=== PATIENT | female | born 1980 | race Caucasian/White ===

== ENCOUNTER 2017-03-06 18:09 | Emergency (ER) | payer MEDICAID, OTHER ==
--- NOTE | 2017-03-06 18:26 | ED Physician Documentation ---
General Adult - HISTORIAN Historian: patient - HPI Stated Complaint: abdominal wound post hysterectomy Chief Complaint: Wound Recheck Additional Information: Wound Vacc fell off this am Timing: persistent since Severity: moderate Further Comments: no Last known Well Date: 03/06/17 Last Known Well Time: 18:00 Last known Well Code/Unknown Code: Unknown - ROS CONST: no problems EYES/ENT: none GI/: none MS/SKIN/LYMPH: other (wound is with sponge from the abominal wound is open from surgery ) - PAST HX Past History: none Other History: none Surgeries/Procedures: other (Gastric Bypass, ovary removal ) Immunizations: referred to PCP Allergies/Adverse Reactions: Allergies Allergy/AdvReac Type Severity Reaction Status Date / Time NSAIDS (Non-Steroidal AdvReac Abdominal Verified 04/16/15 16:30 Anti-Inflamma Pain Home Medications: Ambulatory Orders Medication Instructions Recorded Clonazepam 1 mg PO HS u2 04/12/15 - SOCIAL HX Smoking History: non-smoker Alcohol Use: none Drug Use: none - FAMILY HX Family History: No - VITAL SIGNS Vital Signs: Vital Signs Temp Pulse Resp BP Pulse Ox 120/64 04/16/15 16:50 - REVIEWED ASSESSMENTS Nursing Assessment Reviewed: Yes Vitals Reviewed: Yes General Adult Physical Exam - PHYSICAL EXAM GENERAL APPEARANCE: no distress EENT: eye inspection normal NECK: normal inspection RESPIRATORY: no resp distress, chest non-tender, breath sounds normal CVS: reg rate & rhythm, heart sounds normal, equal pulses, no murmur ABDOMEN: other (area on mid abdomen open redness wound vacc sponge in place ) SKIN: warm/dry, normal color EXTREMITIES: non-tender NEURO: oriented X3, CN's nml as tested, motor nml Discharge Referrals: Catina Packer MD [Primary Care Provider] - 2 Days
[2017-03-06] MEDS ORDERED: HYDROmorphone HCL/PF 1 MG/ML DISP.SYRIN IM ONE (18:34)
[2017-03-06] MEDS ORDERED: ONDANSETRON HCL/PF 4 MG/ 2ML VIAL IM ONE (18:34)
[2017-03-06 18:37] VITALS: BP 133/84
== END 2017-03-06 19:25 | disposition home or self-care (01) ==
LOC: ED 18:09
DX: Z48.01 Encounter for change or removal of surgical wound dressing (principal)
CPT/HCPCS: J1170; J2405; 96372; 99283